=== PATIENT | female | born 1990 ===

== ENCOUNTER 2018-02-21 15:38 | Emergency (ER) | payer OTHER ==
[2018-02-21 15:50] VITALS: RESP 18
[2018-02-21] MEDS ORDERED: Sodium Chloride 0.9% 1,000 ML IV ONE (16:55)
--- NOTE | 2018-02-21 17:00 | C.PDOC ---
History Of Present Illness 27 yo female w/o PMhx come in for evaluation of fever, chills, bodyaches, malaise, sore throat, dry cough developed since yesterday. Pt denies recent travel or known sick contact, denies lethargy, drooling, CP, SOB, dyspnea, diaphoresis, wheezing, abd. pain, V/D, back pain, UTI sx. Appears sick now. HPI: Influenza Time Seen by Provider: 02/21/18 16:16 Chief Complaint: Flu-like Symptoms History Per: Patient Past Medical History Reviewed: Historical Data, Nursing Documentation, Vital Signs Vital Signs: Last Vital Signs Temp 102.9 F H 02/21/18 16:44 Pulse 135 H 02/21/18 15:42 Resp 18 02/21/18 15:42 BP 131/88 02/21/18 15:42 Pulse Ox 96 02/21/18 15:42 ALVARO Report Viewed: Yes - Medical History PMH: No Chronic Diseases Surgical History: No Surg Hx Family History: States: No Known Family Hx - Social History Hx Alcohol Use: Yes Hx Substance Use: No - Immunization History Hx Tetanus Toxoid Vaccination: No Hx Influenza Vaccination: No Hx Pneumococcal Vaccination: No Review Of Systems Except As Marked, All Systems Reviewed And Found Negative. Constitutional: Positive for: Fever, Chills, Malaise ENT: Positive for: Throat Pain. Negative for: Ear Discharge, Nose Discharge, Throat Swelling Cardiovascular: Negative for: Chest Pain, Palpitations, Light Headedness Respiratory: Positive for: Cough. Negative for: Shortness of Breath, Wheezing Gastrointestinal: Positive for: Nausea, Vomiting. Negative for: Abdominal Pain, Diarrhea Genitourinary: Negative for: Dysuria Musculoskeletal: Negative for: Neck Pain, Back Pain Skin: Negative for: Rash Neurological: Negative for: Confusion, Altered Mental Status, Headache Physical Exam - Physical Exam Appears: Well, Non-toxic, No Acute Distress Skin: Normal Color, Warm, Dry, No Rash Head: Normacephalic Eye(s): bilateral: PERRL Ear(s): Bilateral: Normal Nose: No Flaring, No Discharge Oral Mucosa: Moist, No Drooling Throat: Erythema (mild b/L), No Exudate, No Drooling Neck: Trachea Midline, Supple, Other ((-) meningeals ign) Cardiovascular: Rhythm Regular, No Friction Rub, No Murmur, No JVD Respiratory: No Decreased Breath Sounds, No Accessory Muscle Use, No Stridor, No Wheezing Gastrointestinal/Abdominal: Soft, No Tenderness, No Distention, No Guarding, No Rebound Back: No CVA Tenderness Extremity: Normal ROM, No Deformity, No Swelling Neurological/Psych: Oriented x3, Normal Speech - Laboratory Results Result Diagrams: 02/21/18 17:11 02/21/18 17:11 Interpretation Of Abn Labs: Influenza A (+) - ECG ECG Rhythm: Positive for: Sinus Tachycardia Interpretation Of Abn EKG: Sinus tach@127/min, NAD, no acute changes O2 Sat by Pulse Oximetry: 96 Pulse Ox Interpretation: Normal - Progress ED Course And Treament: Pt was OBS [facility] ED for 3 hours and reports mod improvement in sx fever improved now, hemodynamicaly stable Non-toxic, tolerate PO well in ED. ENT: No acute changes neck: SUpple, (-) meningeal sign Lungs: CTA B/L, BS equal B/L CVS: (+)S1S2, reg Abd: benign, (-) guarding, (-) rebound, (-) localized tenderness Neuorlogicaly intact. Blood work review Influenza A (+) Pt advised on course of ds. ref. to f/u with PMD in 2-3 days for re-eval. return if any new changes. Disposition Counseled Patient/Family Regarding: Studies Performed, Diagnosis, Need For Followup, Rx Given - Disposition Referrals: [facility] at [facility] [Outside] Disposition: HOME/ ROUTINE Disposition Time: 18:20 Condition: STABLE Additional Instructions: Encourage fluids Take medication as prescribed Ibuprofen/Tylenol alternate as need for fever and pain Follow up with PMD in 2-3 days for re-evaluation. return to ED if any worsening or new changes. Prescriptions: Oseltamivir Phosphate [Tamiflu] 75 mg PO BID #10 capsule Instructions: Flu, Adult (DC) Forms: [facility] (Czech), Work Excuse - Clinical Impression Clinical Impression: Influenza
[2018-02-21 17:14] LABS: BASO # 0.1 K/uL (0.0-0.2); BASO % 0.4 % (0.0-2.0); HEMOGLOBIN 14.7 g/dL (11.0-16.0); LYMPH # 0.7 K/uL (1.0-4.3); MEAN CELL VOLUME 89.9 fL (81.0-99.0); MEAN CORPUSCULAR HGB CONC 34.5 g/dL (33.0-37.0); MEAN PLATELET VOLUME 8.3 fL (7.2-11.7); MONO # 0.8 K/uL (0.0-0.8); MONO % 5.2 % (0.0-10.0); NEUT # 12.9 K/uL (1.8-7.0); NEUT % 89.4 % (50.0-75.0); PLATELET COUNT 189 K/uL (130-400); RBC 4.74 Mil/uL (3.80-5.20); RED CELL DISTRIBUTION WIDTH 12.9 % (11.5-14.5); WHITE BLOOD COUNT 14.4 K/uL (4.8-10.8)
[2018-02-21] MEDS ORDERED: Sodium Chloride 0.9% 1,000 ML ONE (17:18)
[2018-02-21 17:28] LABS: BLOOD UREA NITROGEN 9 mg/dL (7-17); CALCIUM 9.1 mg/dl (8.6-10.4); GFR NON-AFRICAN AMERICAN > 60
[2018-02-21 17:47] LABS: LYMPHOCYTE 3 % (20-40); MONOCYTE 7 % (0-10); NEUTROPHIL 90 % (50-75); PLATELET ESTIMATE NORMAL (NORMAL); TOTAL CELLS COUNTED 100
[2018-02-21 18:23] VITALS: BP 102/68; PULSE 108; TEMP 99.7
[2018-02-21 18:52] VITALS: O2SAT 96
== END 2018-02-21 19:08 | disposition home or self-care (01) ==
LOC: C.ER 15:38
DX: J11.1 Influenza due to unidentified influenza virus with other respiratory manifestations (principal)
CPT/HCPCS: 80048; 85025; 87804; 93005; 96361; 96374; 99284; J1885; J7030